=== PATIENT | female | born 1970 | race Caucasian/White ===

== ENCOUNTER → 2017-10-31 | Outpatient (CLI) | payer BC ==
[~2017-10-31] MED LIST: ALBU90OI INH; ANTOXYBENA OT; ANXIETY MED; ARIP10 PO; ASPI325EC PO; AZIT250 PO; BCP'S; BENZ100A; BENZ100A PO; BUPR100 PO; BUPR150T2; Bactroban22 GM TOP; Benadryl 50 mg50 MG PO; CHOL10002 PO; CHRO200; CIPR500 PO; CLIN150 PO; CLIN300 PO; CRUTCH2 USE; CYCL10 PO; DIPH50 PO; DOCSEN PO; DOCUSATE PO; DOXY100 PO; EPIN.3I IM; ERGO50000 PO; FISH1000; FISH1000 PO; HYDACE5 PO; HYDHCL25 PO; IBUP600 PO; IBUP800 PO; ISOMON30 PO; LASIX; LORA.5; LORA.5 PO; LORA1; LORA1 PO; MELA3; MELA3 PO; MELO7.5 PO; MOMENI; MULVITMINE PO; MULVITMINF; OMEP20ER PO; OXYACE5T PO; PHENA100 PO; PRED20 PO; PROBIOTIC ACID1 EAC2 PO; PROCODE120 PO; PRODEXEL PO; PROM25 PO; Pepcid20 MG PO; Percocet 5-3251 EACH PO; QUET25; QUET25 PO; RANI150 PO; RXCYCL10 PO; RXOXYACE PO; SENN187 PO; SENNA PO; SENNP PO; STOMUL; TOPIRAGEN25 MG PO; TRAM50 PO; Ultram50 MG PO; VITAMIN D-32000 UNIT PO; Vibramycin100 MG PO; ZINC; Zofran Odt4 MG SL; [UNRECOGNIZED DRUG - OTHER]
[2017-11-02 13:32] LABS: HPV Genotype 16 Not Detected (NOTDET); HPV Genotype 18 Not Detected (NOTDET)
[2017-11-12 10:17] LABS: HPV High Risk Other Not Detected (NOTDET)
== END ==
LOC: LAB 16:06
PROVIDERS: Obstetrics & Gynecology
DX: Z00.00 Encounter for general adult medical examination without abnormal findings (principal)
CPT/HCPCS: 87624; G0123

== ENCOUNTER → 2018-12-04 | Outpatient (CLI) | payer BC ==
[2018-12-06 14:07] LABS: HPV 16 Negative (Negative); HPV 18 Negative (Negative); HPV OTHER HR TYPES Negative (Negative)
== END | disposition home or self-care (01) ==
LOC: LAB SHORT 15:24 → LAB 15:24
PROVIDERS: Obstetrics & Gynecology
DX: Z01.419 Encounter for gynecological examination (general) (routine) without abnormal findings (principal)
CPT/HCPCS: 87624; G0123